=== PATIENT | female | born 1985 | race Caucasian/White ===

== ENCOUNTER 2021-12-15 09:46 | Outpatient (CLI) | payer MEDICAID, SELFPAY ==
--- NOTE | 2021-12-15 09:53 | XRR_ITS ---
PROCEDURE INFORMATION: Exam: XR Lumbosacral Spine Exam date and time: 12/15/2021 9:57 AM Age: 36 years old Clinical indication: Pain and injury or trauma; Fall; Blunt trauma (contusions or hematomas); Low back pain; Injury date: 4 days ago; Prior surgery; Surgery type: Hystero; Additional info: Low back injury TECHNIQUE: Imaging protocol: XR of the lumbosacral spine. Views: 2 or 3 views. COMPARISON: No relevant prior studies available. FINDINGS: Bones/joints: No acute fracture or malalignment. Disc spaces are maintained. Partial sacralization of L5. Soft tissues: Unremarkable. XR/XR lumbar spine 2-3V* [id number] IMPRESSION: No acute fracture or malalignment.
== END 2021-12-15 09:47 | disposition home or self-care (01) ==
LOC: RAD 09:47
PROVIDERS: Visit Provider Family Medicine
DX: S39.92XA Unspecified injury of lower back, initial encounter (principal)
CPT/HCPCS: 72100

== ENCOUNTER → 2022-07-02 10:21 | Outpatient (BNVA) | payer MEDICAID, SELFPAY | PROVIDERS: Visit Provider Family Medicine Adult Medicine | DX: J11.1 Influenza due to unidentified influenza virus with other respiratory manifestations (principal); Z87.09 Personal history of other diseases of the respiratory system; J06.9 Acute upper respiratory infection, unspecified | CPT/HCPCS: 87400 ==

== ENCOUNTER 2024-03-08 06:18 | Emergency (ER) | payer OTHER, SELFPAY ==
--- NOTE | 2024-03-08 06:28 | W.ED.ABDPA2 ---
HPI - Abdominal Pain General: Chief Complaint: Abdominal Pain Stated Complaint: Lower right side stomach pain Time Seen by Provider: 03/08/24 06:21 History of Present Illness: 38-year-old female presents emergency room with complaint of right-sided abdominal pain. Pain began this morning at around 4 AM. Localizes it to the right lower quadrant. Any movement worsens the pain significantly. Denies dysuria urgency or frequency. No diarrhea no vomiting. Associated Symptoms: Denies chills, dysuria and fever(s) Related Data Previous Rx's Medication Instructions Recorded fluticasone propionate 50 1 spray intranasal BID #16 grams 07/02/22 mcg/actuation nasal spray,suspension amoxicillin 875 mg-potassium 1 tab PO BID #14 tabs 03/08/24 clavulanate 125 mg tablet hydrocodone 5 mg-acetaminophen 325 1 tab PO Q6H PRN pain #10 tabs 03/08/24 mg tablet promethazine 25 mg tablet 25 mg PO Q6H PRN nausea and 03/08/24 vomiting #10 tabs Allergies Allergy/AdvReac Type Severity Reaction Status Date / Time diphenhydramine Allergy Mild ADR-Altered Verified 03/08/24 06:35 [From Triaminic Allergy] Sense of Taste guaifenesin [From Robitussin] Allergy Mild ADR-Anxiety Verified 03/08/24 06:35 Review of Systems Const: Denies: fever(s) or chills Card: Denies: chest pain Resp: Denies: dyspnea GI: Reports: abdominal pain : Denies: dysuria, urinary frequency or urinary urgency Musc: Denies: neck pain or back pain Skin/Breast: Denies: rash PFSH ED PFSH: Medical History URI with cough and congestion History of strep pharyngitis Social History Smoking and tobacco/nicotine status: current every day tobacco/nicotine user Alcohol intake: never Substance/Drug Use: never Physical Exam Const: COMMON NORMALS: no acute distress GENERAL APPEARANCE: cooperative and comfortable ORIENTATION/CONSCIOUSNESS: Yes awake, Yes oriented to person, Yes oriented to place and Yes oriented to time HENMT: COMMON NORMALS: normocephalic, atraumatic and hearing grossly normal bilaterally HEAD & SCALP: normocephalic and atraumatic Resp: COMMON NORMALS: normal respiratory effort, No retractions, No use of accessory muscles and clear to auscultation bilaterally AUSCULTATION: clear to auscultation bilaterally Cardio: COMMON NORMALS: regular rate, regular rhythm and No murmurs present (Cardio) RATE: regular rate RHYTHM: regular rhythm GI: COMMON NORMALS: No hepatosplenomegaly present AUSCULTATION: Yes normoactive bowel sounds PALPATION: Yes Tenderness to palpation present (GI) Details: RLQ, No Guarding due to palpation present (GI) and Yes No hepatosplenomegaly present Extremity: COMMON NORMALS: normal to inspection, capillary refill normal, no clubbing, cyanosis or edema, no calf tenderness and no pedal edema Neuro: SENSORIUM/ORIENTATION: Yes oriented to person, Yes oriented to place and Yes oriented to time Skin: COMMON NORMALS: no rashes or lesions noted GENERAL SKIN EXAM: no rashes or lesions noted Course Vital Signs: Vital signs: Vital Signs Temperature 98.2 F 03/08/24 06:29 Pulse Rate 62 03/08/24 08:47 Respiratory Rate 16 03/08/24 06:35 Blood Pressure 112/72 03/08/24 08:47 Pulse Oximetry 97 03/08/24 08:47 Oxygen Delivery Me thod Room Air 03/08/24 08:04 MDM - Abdominal Pain Medical Decision Making Right-sided abdominal pain no elevation of liver enzymes no appendicitis no leukocytosis. CT did not show any acute appendicitis. She did show some inflammation surrounding gallbladder gallbladder ultrasound was done no dilation of common bile duct there does appear to be a polyp within the gallbladder but there is no obstruction no obstructive pattern on the laboratory test. Will discharge patient home with hydrocodone promethazine started on Augmentin and have case management make arrangements for follow-up with general surgery Medical Records I reviewed the patient's medical records. Lab Data I reviewed the patient's lab results. 03/08/24 06:42 03/08/24 06:42 Labs/Radiology: Radiology Impressions Abdomen/Pelvis CT 03/08/24 06:39 IMPRESSION: Questionable mild gallbladder wall thickening. If patient's abdominal pain is compatible with biliary colic, recommend dedicated gallbladder ultrasound for further evaluation. Gallbladder Ultrasound 03/08/24 08:01 IMPRESSION: 1. Mild diffuse gallbladder wall thickening up to 0.5 cm. 2. Focal sessile gallbladder polyp measuring 0.5 cm. 3. No distinct gallbladder stones or sludge. Contract Lead does not comment on sonographic William's sign. Laboratory Results WBC 6.17 10^3/uL (3.29-11.43) 03/08/24 06:42 RBC 4.35 10^6/uL (3.85-5.65) 03/08/24 06:42 Hgb 13.40 g/dL (11.27-16.99) 03/08/24 06:42 Hct 42.0 % (36-47) 03/08/24 06:42 MCV 96.6 fl (85-98) 03/08/24 06:42 MCH 30.8 pg (27-33) 03/08/24 06:42 MCHC 31.9 g/dL (30-55) 03/08/24 06:42 RDW 12.1 % (12.1-15.1) 03/08/24 06:42 Plt Count 168 10^3/cmm (157-399) 03/08/24 06:42 MPV 10.7 fL (7.4-10.4) H 03/08/24 06:42 Neut % (Auto) 68.7 % 03/08/24 06:42 Lymph % (Auto) 24.5 % 03/08/24 06:42 [place] % (Auto) 4.4 % 03/08/24 06:42 Eos % (Auto) 1.9 % 03/08/24 06:42 Baso % (Auto) 0.3 % 03/08/24 06:42 Neut # (Auto) 4.24 10^3/uL (1.8-7.7) 03/08/24 06:42 Lymph # (Auto) 1.5 10^3/uL (0.8-4.8) 03/08/24 06:42 [place] # (Auto) 0.3 10^3/uL (0.2-0.9) 03/08/24 06:42 Eos # (Auto) 0.1 10^3/uL (0.0-0.8) 03/08/24 06:42 Baso # (Auto) 0.0 10^3/uL (0.0-0.1) 03/08/24 06:42 Nucleated RBC % (auto) 0 % 03/08/24 06:42 Nucleated RBCs # 0.0 /100WBC 03/08/24 06:42 Sodium 140 mmol/L (136-145) 03/08/24 06:42 Potassium 3.6 mmol/L (3.5-5.1) 03/08/24 06:42 Chloride 107 mmol/L (98-107) 03/08/24 06:42 Carbon Dioxide 21 mmol/L (22-29) L 03/08/24 06:42 Anion Gap 15.6 (5-19) 03/08/24 06:42 BUN 11 mg/dL (6-20) 03/08/24 06:42 Creatinine 0.6 mg/dL (0.5-0.9) 03/08/24 06:42 GFR Calculation 113.1 mL/min (90-130) 03/08/24 06:42 Glucose 127 mg/dL (65-115) H 03/08/24 06:42 Calculated Osmolality 291 mOsm/kg (285-295) 03/08/24 06:42 Calcium 9.0 mg/dL (8.5-10.5) 03/08/24 06:42 Total Bilirubin 0.2 mg/dL (0.15-1.2) 03/08/24 06:42 AST 10 U/L (0-32) 03/08/24 06:42 ALT 9 U/L (0-33) 03/08/24 06:42 Alkaline Phosphatase 67 U/L (35-105) 03/08/24 06:42 Total Protein 6.8 g/dL (6.6-8.7) 03/08/24 06:42 Albumin 4.4 g/dL (3.5-5.2) 03/08/24 06:42 Globulin 2.4 g/dL (1.3-4.6) 03/08/24 06:42 Urine Color Yellow (Yellow) 03/08/24 06:43 Urine Appearance Clear (CLEAR) 03/08/24 06:43 Urine pH 5.0 (5-7) 03/08/24 06:43 Ur Specific [place] 1.026 (1.005-1.030) 03/08/24 06:43 Urine Protein Negative (Negative) 03/08/24 06:43 Urine Glucose (UA) Negative (Normal) 03/08/24 06:43 Urine Ketones Negative (Negative) 03/08/24 06:43 Urine Blood Negative (Negative) 03/08/24 06:43 Urine Nitrate Negative (Negative) 03/08/24 06:43 Urine Bilirubin Negative (Negative) 03/08/24 06:43 Urine Urobilinogen 1.0 mg/dL (Negative) 03/08/24 06:43 Ur Leukocyte Esterase Negative (Negative) 03/08/24 06:43 Urine RBC 0-2 /hpf (0-2) 03/08/24 06:43 Urine WBC 0-5 /hpf (0-5) 03/08/24 06:43 Ur Squamous Epith Cells 0-5 /hpf (0-5) 03/08/24 06:43 Amorphous Sediment Not Reportable 03/08/24 06:43 Urine Bacteria None seen /hpf (NONE) 03/08/24 06:43 Hyaline Casts 0-4 /lpf H 03/08/24 06:43 All radiology interpretation(s) finalized by discharge Discharge Plan Discharge Patient Disposition: Home Clinical Impression: Cholecystitis Condition: Stable Prescriptions: New hydrocodone-acetaminophen 5-325 mg tablet 1 tab PO Q6H PRN (Reason: pain) Qty: 10 0RF promethazine 25 mg tablet 25 mg PO Q6H PRN (Reason: nausea and vomiting) Qty: 10 0RF amoxicillin-pot clavulanate 875-125 mg tablet 1 tab PO BID Qty: 14 0RF Discontinued amoxicillin 500 mg capsule 500 mg PO BID Qty: 10 0RF No Action fluticasone propionate 50 mcg/actuation spray,suspension 1 spray intranasal BID Qty: 16 1RF Rx Instructions: administer into each nostril Discharge Orders: Discharge ED (Routine); Ordered 03/08/24 Ordered By: Liu Hoover Referrals: Mike Mathur MD [Primary Care Provider] - Patient Instructions: Opioid Safety, Pain Management Activity Restrictions/Additional Instructions: Thank you for choosing [facility] for your healthcare needs today. It is very important that you follow up as instructed or that you return to the Emergency Department should you have concerns or if your condition changes or worsens in any way. You were seen today for abdominal pain. CT did not show any acute appendicitis it did Zosyn inflammation of your gallbladder. Ultrasound showed similar there is no sign of obstruction. Recommend clear liquid diet for next 24 to 48 hours and advance as tolerated. You can use pain and nausea medications as needed recommend antibiotics 1 pill twice a day. Case management make emergency room to follow-up with surgery. Coding Level of Care Code ED Medicare Biller for Hanane Dover
[2024-03-08 06:29] VITALS: BP 125/80; PULSE 77; RESP 16; TEMP 36.8; O2SAT 98; BMI 26.5
[2024-03-08 06:35] VITALS: BP 125/80; PULSE 78; RESP 16; O2SAT 100
--- NOTE | 2024-03-08 06:39 | CTR_ITS ---
PROCEDURE INFORMATION: Exam: CT Abdomen And Pelvis Without Contrast Exam date and time: 03/08/2024 6:55 AM Age: 38 years old Clinical indication: Abdominal pain; Localized; Right lower quadrant (rlq); Prior surgery; Surgery date: 6+ months; Surgery type: Hysto, femur; Additional info: Rlq abdominal pain TECHNIQUE: Imaging protocol: Computed tomography of the abdomen and pelvis without contrast. Radiation optimization: All CT scans at this facility use at least one of these dose optimization techniques: automated exposure control; mA and/or kV adjustment per patient size (includes targeted exams where dose is matched to clinical indication); or iterative reconstruction. COMPARISON: CR XR lumbar spine 2-3V* [id number] 12/15/2021 9:57 AM RADIATION DOSE METRICS: Total DLP (mGy-cm): 494.63 FINDINGS: Lungs: Visualized lung bases are clear. Liver: The liver is unremarkable. Gallbladder and biliary ducts: Questionable mild gallbladder wall thickening. No significant biliary ductal dilation. Pancreas: The pancreas is unremarkable. Spleen: The spleen is unremarkable. Adrenal glands: The adrenal glands are unremarkable. Kidneys and ureters: Kidneys are normal. No hydronephrosis or nephrolithiasis. Stomach and bowel: Nonobstructive bowel-gas pattern. Appendix: No evidence of acute appendicitis. Intraperitoneal space: No extraluminal free air. Vasculature: Abdominal aorta and its major branches are within normal limits. Lymph nodes: No distinct pathologically enlarged lymphadenopathy. Urinary bladder: Urinary bladder is within normal limits. Reproductive: Uterus is absent. Bones/joints: Status post intramedullary natalia and screw fixation of the left femur. No acute osseous findings. Soft tissues: Visualized superficial soft tissues are within normal limits. CT/CT abdomen pelvis wo con [id number] IMPRESSION: Questionable mild gallbladder wall thickening. If patient's abdominal pain is compatible with biliary colic, recommend dedicated gallbladder ultrasound for further evaluation.
[2024-03-08 06:50] LABS: Charge for UA Resulting for Rev
[2024-03-08 06:50] LABS: Basophils % 0.3 %; Eosinophils # 0.1 10^3/uL (0.0-0.8); Eosinophils % 1.9 %; Lymphocytes # 1.5 10^3/uL (0.8-4.8); Lymphocytes % 24.5 %; Mean Corpuscular HGB Conc 31.9 g/dL (30-55); Mean Corpuscular Hemoglobin 30.8 pg (27-33); Mean Corpuscular Volume 96.6 fl (85-98); Mean Platelet Volume 10.7 fL (7.4-10.4); Monocytes # 0.3 10^3/uL (0.2-0.9); Monocytes % 4.4 %; Neutrophils # 4.24 10^3/uL (1.8-7.7); Neutrophils % 68.7 %; Nucleated Red Blood Cells % 0 %; Platelet Count 168 10^3/cmm (157-399); Red Blood Count 4.35 10^6/uL (3.85-5.65); Red Cell Distribution Width 12.1 % (12.1-15.1); White Blood Count 6.17 10^3/uL (3.29-11.43)
[2024-03-08 07:10] LABS: Alanine Aminotransferase 9 U/L (0-33); Albumin Level 4.4 g/dL (3.5-5.2); Alkaline Phosphatase 67 U/L (35-105); Anion Gap 15.6 (5-19); Aspartate Amino Transferase 10 U/L (0-32); Blood Urea Nitrogen 11 mg/dL (6-20); Carbon Dioxide 21 mmol/L (22-29); Chloride 107 mmol/L (98-107); Creatinine Clr Calc Pharmacy 120.0267; Globulin 2.4 g/dL (1.3-4.6); Glomerular Filtration Rate 113.1 mL/min (90-130); Glucose 127 mg/dL (65-115); Osmolality Calculated 291 mOsm/kg (285-295); Potassium 3.6 mmol/L (3.5-5.1); Sodium 140 mmol/L (136-145); Total Bilirubin 0.2 mg/dL (0.15-1.2); Total Protein 6.8 g/dL (6.6-8.7)
[2024-03-08 07:30] VITALS: BP 102/69; PULSE 60; O2SAT 99
[2024-03-08 07:31] LABS: Bilirubin Urine Negative (Negative); Blood Urine Negative (Negative); Glucose Urine UA Negative (Normal); Ketones Urine Negative (Negative); Leukocyte Esterase Urine Negative (Negative); Nitrate Urine Negative (Negative); Protein Urine Negative (Negative); Specific Gravity, Urine 1.026 (1.005-1.030); Urine Appearance Clear (CLEAR); Urine Color Yellow (Yellow)
[2024-03-08 07:34] LABS: Bacteria Urine None Seen /hpf; Hyaline Casts Urine 0-4 /lpf; RBC Urine 0-2 /hpf (0-2); Squamous Epithelial Cell Urine 0-5 /hpf (0-5); WBC Urine 0-5 /hpf (0-5)
--- NOTE | 2024-03-08 08:01 | USR_ITS ---
PROCEDURE INFORMATION: Exam: US Abdomen, Limited; Right Upper Quadrant Exam date and time: 03/08/2024 8:13 AM Age: 38 years old Clinical indication: Abdominal pain; Localized; Right lower quadrant (rlq); Additional info: Abd pain TECHNIQUE: Imaging protocol: Real time ultrasound of the abdomen with image documentation. Limited exam focused on the right upper quadrant. COMPARISON: CT abdomen pelvis wo con [id number] 03/08/2024 6:55 AM FINDINGS: Liver: Normal. No masses. Gallbladder: Mild diffuse gallbladder wall thickening up to 0.5 cm. Focal sessile gallbladder polyp measuring 0.5 cm. No distinct gallbladder stones or sludge. Food Service Coordinator does not comment on sonographic William's sign. Biliary ducts: Normal. No stones. No dilation. Pancreas: Visualized pancreas is unremarkable. Right kidney: Normal. No mass. No hydronephrosis. US/US gall bladder [id number] IMPRESSION: 1. Mild diffuse gallbladder wall thickening up to 0.5 cm. 2. Focal sessile gallbladder polyp measuring 0.5 cm. 3. No distinct gallbladder stones or sludge. Food Service Coordinator does not comment on sonographic William's sign.
[2024-03-08 08:04] VITALS: BP 111/71; PULSE 57; O2SAT 99
[2024-03-08] MEDS: ketorolac 30 mg/mL INJ IVP (08:12)
[2024-03-08 08:47] VITALS: BP 112/72; PULSE 62; O2SAT 97
--- NOTE | 2024-03-09 08:05 | DCPLANNER ---
messaged gen surg for er f/u
== END 2024-03-08 08:49 | disposition home or self-care (01) ==
PROVIDERS: Emergency Provider Family Medicine; PCP Family Medicine
DX: K81.9 Cholecystitis, unspecified (principal); Z72.0 Tobacco use
CPT/HCPCS: 74176; 76705; 80053; 81003; 81015; 85025; 96374; 99285; J1885

== ENCOUNTER 2024-03-18 05:03 | Day surgery (SDC) | payer OTHER, SELFPAY ==
[2024-03-18] VITALS (15 sets, daily range): BP systolic 85–114; BP diastolic 46–75; PULSE 57–98; RESP 16–20; TEMP 36.2–36.9; O2SAT 94–99; BMI 26.9
[2024-03-18] MEDS: sodium chloride 0.9% 1,000 ML 30 ML IV (06:17)
--- NOTE | 2024-03-18 06:36 | ANES.PREANE2 ---
Pre-Anesthetic Assessment Height/Weight: Height 1.6 m Weight 68.946 kg Temp Pulse Resp BP Pulse Ox O2 Del Method 97.7 F 58 L 18 109/71 99 Room Air 03/18/24 06:24 03/18/24 06:24 03/18/24 06:24 03/18/24 06:24 03/18/24 06:24 03/18/24 06:27 Operation Date: 03/18/24 07:00 Proposed Procedures p Laparoscopic Cholecystectomy 74549, K81.9(Not Applicable) - Castillo Mallory MD Familial anesthetic complications: None Was Beta Tarun taken within 24 hours: N/A Was Clonidine taken within 24 hours: N/A Last intake: Intake Last Liquid Date 03/17/24 Last Liquid Time 18:30 Last Solid Date 03/17/24 Last Solid Time 18:30 Social Tobacco and No alcohol Exam alert, oriented x 3, clear to auscultation bilaterally and regular rate & rhythm Airway Mallampati: Class II Dentition: other (2 rotten teeth in the back R) Anesthetic Plan ASA status: 1 Anesthesia: General Risk of > 500 ml blood loss (7ml/kg in children): No Medications/Allergies Home Medications Medication Instructions Recorded Confirmed Last Taken Type amoxicillin 875 mg-potassium 1 tab PO BID #14 tabs 03/08/24 03/17/24 03/17/24 Rx clavulanate 125 mg tablet Allergies Allergy/AdvReac Type Severity Reaction Status Date / Time diphenhydramine Allergy Mild ADR-Altered Verified 03/12/24 09:00 [From Triaminic Allergy] Sense of Taste guaifenesin [From Robitussin] Allergy Mild ADR-Anxiety Verified 03/12/24 09:00 Current Medications Generic Name Dose Route Start Last Admin Trade Name Freq PRN Reason Stop Dose Admin Sodium Chloride 1,000 mls @ 30 mls/hr 03/18/24 05:45 03/18/24 06:17 Sodium Chloride 0.9% IV 03/19/24 05:44 30 mls/hr .Q24H ANGELINA Administration PFSH Anesthesia Medical History (Updated 03/16/24 @ 00:00 by CHON Hawk) URI with cough and congestion History of strep pharyngitis Social History Smoking and tobacco/nicotine status: current every day tobacco/nicotine user Alcohol intake: never Substance/Drug Use: never Data Anesthesia Cardiac Studies: No Data to Display
--- NOTE | 2024-03-18 06:57 | W.PM.OPSFHP ---
Same Day Surgery H&P Indication for Procedure/HPI DATE OF PROCEDURE: March 18, 2024 CHIEF COMPLAINT/INDICATIONFOR SURGICAL PROCEDURE: Right upper quadrant pain PREOP DIAGNOSIS: Cholecystitis PLANNED PROCEDURE: Operation Date: 03/18/24 07:00 Proposed Procedures p Laparoscopic Cholecystectomy 92654, K81.9(Not Applicable) - Castillo Mallory MD Medications/Allergies* Allergies/Adverse Reactions Allergy/AdvReac Type Severity Reaction Status Date / Time diphenhydramine Allergy Mild ADR-Altered Verified 03/12/24 09:00 [From Triaminic Allergy] Sense of Taste guaifenesin [From Robitussin] Allergy Mild ADR-Anxiety Verified 03/12/24 09:00 Current Medications: Generic Name Dose Route Start Last Admin Trade Name Freq PRN Reason Stop Dose Admin Sodium Chloride 1,000 mls @ 30 mls/hr 03/18/24 05:45 03/18/24 06:17 Sodium Chloride 0.9% IV 03/19/24 05:44 30 mls/hr .Q24H ANGELINA Administration Pertinent History/Comorbid Conditions* Medical History (Updated 03/16/24 @ 00:00 by HCON Hawk) URI with cough and congestion History of strep pharyngitis Social History Smoking and tobacco/nicotine status: current every day tobacco/nicotine user Alcohol intake: never Substance/Drug Use: never Pertinent Exam Findings alert, oriented x 3 and regular rate & rhythm Abdomen soft, TTP RUQ, non distended. Recommendations Surgery/Procedure today Other Plans: Proceeding with lap rashmi, possible open Coding Level of Care Code Acute Code for g Stanislaw
[2024-03-18] MEDS: ceFAZolin 2,000 mg SDV 2000 MG IVP (07:01)
[2024-03-18] MEDS: BUPivacaine 0.25% INJ 10 mL INJECTION (07:33)
[2024-03-18] MEDS: lidocaine 1% 10 ML INJ XX (07:33)
--- NOTE | 2024-03-18 08:33 | W.PM.BPON ---
Date of Procedure: 03/18/24 Surgeon: Castillo Mallory MD Senior Construction Project Manager(s): None Procedure(s) performed: Laparoscopic cholecystectomy Findings of the procedure(s): Cholecystitis Estimated blood loss: Less than 10 cc Specimen(s) removed: Gallbladder Post-operative diagnosis: Cholecystitis
[2024-03-18] MEDS: oxyCODONE 5 mg IR Tab/Cap PO (09:38)
[2024-03-18] MEDS: ondansetron 2 mg/ML SDV 2 mL 4 MG IVP (10:02)
--- NOTE | 2024-03-18 12:25 | ANE.PACU2 ---
Inpatient post-anesthesia follow up: Airway intact: Yes Vital signs: Temperature 97.2 F Pulse Rate 78 Respiratory Rate 18 Blood Pressure 106/59 Pulse Oximetry 96 Oxygen Delivery Me thod Room Air Oxygen Flow Rate Fraction of Inspir ed Oxygen Hydration adequate: Yes Nausea and vomiting: No Pain level: 1 Mental status: Baseline
--- NOTE | 2024-03-19 15:47 | W.PM.BPONFUL ---
Pathology: Cholecystitis Implant(s): NA Anesthesia: General anesthesia Complications: NA Brief history/preop diagnosis: 38yo female was referred to clinic after an episode of cholecystitis that was recently treated with oral antibiotics. Patient was taken to the OR for elective laparoscopic cholecystectomy. Full operative report: I discussed the risks and benefits of laparoscopic cholecystectomy, and obtained consent prior to proceeding to the operating room. SCDs were utilized. Prophylactic antibiotics were administered. General anesthesia was induced. The patient was placed supine, and she was prepped and draped in the usual sterile fashion. Insufflation to 15mmHg was achieved using a Veress needle at Willis's point. A 5mm optiview trocar was placed at the umbilicus under direct visualization. The left upper quadrant was inspected, and no injuries were noted. Two 5mm ports were placed in the right upper quadrant, and a 11mm working port was placed in the epigastrium. The gallbladder was then retracted cephalad through the lateral RUQ port, and the infundibulum grabbed through the medial RUQ port and retracted laterally. The gallbladder was inflammed and thus consistent with her diagnosis of cholecystitis. I proceeded to score the peritoneum over the medial aspect of the gallbladder using a laparoscopic hook with electrocautery. Then the infundibulum was retracted medially in order to score the peritoneum over the lateral aspect of the galbladder. Using a combination of energy and blunt dissection with the [place] and a [place] dissector, the cystic artery and cystic duct were dissected. I then proceeded to dissect the cystic plate in order to to achieve the critical view of safety. The cystic artery and the cystic duct were clipped three times (leaving two clips on the proximal end of both structures). I then proceeded to dissect the gallbladder off the liver using hook electrocautery. The specimen was placed in an endocatch bag and retrieved from the abdomen through the port on the epigastrium. I then irrigated the gallbladder fossa with 1L of NS to confirm adequate hemostasis and the absence of any bile leaks. The gallbladder fossa was then cauterized again. Prior to ending the laparoscopic portion, I examined the rest of the abdomen and did not find any abnormalities or injuries. The abdomen was then desufflated, and the 11mm port in the epigastrium was closed using 0 vicryl on a UR needle after irrigating copiously. Skin was closed using 4-0 monocryl and surgical glue. The patient woke up from anesthesia and transferred to PACU without any complications. Condition: Stable Dispostion: Home
== END 2024-03-18 12:24 | disposition home or self-care (01) ==
PROVIDERS: PCP Family Medicine; Visit Provider Student in an Organized Health Care Education/Training Program
PROC: 0FT44ZZ Resection of Gallbladder, Percutaneous Endoscopic Approach (ICD-10-PCS; CPT 47562; principal; 2024-03-18 07:00)
DX: K81.1 Chronic cholecystitis (principal); F17.200 Nicotine dependence, unspecified, uncomplicated
CPT/HCPCS: 47562; 88304; J0131; J0690; J1100; J1170; J2250; J2405; J2704; J2710; J3010; J3490; J7030